=== PATIENT | female | born 1960 | race African-American/Black ===

== ENCOUNTER → 2016-11-18 | Outpatient (CLI) | payer OTHER ==
[~2016-11-18] MED LIST: ANTIHYPERTENSIVE; BENAZEPRIL HCL40 MG PO; C-10001000 M1 PO; DARVOCET-N 1001 EACH PO; DIAZEPAM 10 MG10 M2 PO; DIAZEPAM10 M1 OR; HYCET 7.5 MG-3473 ML PO; LOTENSIN40 MG PO; LOTREL 10-20 M1 EACH PO; LOTREL 5-20 MG1 EACH PO; NORCO 5-325 TA1 EACH PO; NORVASC10 MG PO; OMEPRAZOLE20 M1 PO; PAXIL10 MG PO; PENICILLIN VK500 M1 PO; PENTASA 250 MG250 MG PO; PREDNISONE 20 M20 MG PO; PRILOSEC 20 MG20 MG PO; REMICADE 1100 MG/VIA IV; VITAMIN A10000 UNI3 PO; VITAMIN E100 UNI2; VITAMINC500 PO; [UNRECOGNIZED DRUG - OTHER] OR
[2016-11-18 11:54] VITALS: BP 123/80
== END ==
LOC: OPONC 02:09
DX: K50.90 Crohn's disease, unspecified, without complications (principal); M19.90 Unspecified osteoarthritis, unspecified site

== ENCOUNTER → 2016-12-31 | Outpatient (CLI) | payer OTHER ==
[2016-12-31 10:50] VITALS: BP 133/94
== END ==
LOC: OPONC 12-30 10:46
DX: K50.90 Crohn's disease, unspecified, without complications (principal); M19.90 Unspecified osteoarthritis, unspecified site

== ENCOUNTER → 2017-02-09 | Outpatient (CLI) | payer OTHER ==
[2017-02-09 14:24] VITALS: BP 144/88
== END ==
LOC: OPONC 07:22
DX: K50.90 Crohn's disease, unspecified, without complications (principal)

== ENCOUNTER → 2017-03-24 | Outpatient (CLI) | payer OTHER ==
[2017-03-24 11:51] VITALS: BP 134/88
== END ==
LOC: OPONC 09-23 06:27
DX: K50.90 Crohn's disease, unspecified, without complications (principal)

== ENCOUNTER → 2017-05-11 | Outpatient (CLI) | payer OTHER ==
[2017-05-11 11:52] VITALS: BP 179/96
== END ==
LOC: OPONC 05-05 00:47
DX: K50.90 Crohn's disease, unspecified, without complications (principal); K63.9 Disease of intestine, unspecified

== ENCOUNTER → 2017-06-22 | Outpatient (CLI) | payer OTHER ==
[~2017-06-22] MED LIST changes: +INFLECTRA100 MG IV
[2017-06-22 13:34] VITALS: BP 128/96
== END ==
LOC: OPONC 00:27
DX: K50.90 Crohn's disease, unspecified, without complications (principal); K63.9 Disease of intestine, unspecified

== ENCOUNTER → 2017-10-27 | Outpatient (CLI) | payer OTHER ==
[2017-10-27 11:01] VITALS: BP 140/86; BP 147/99
== END ==
LOC: OPONC 00:16
DX: K50.90 Crohn's disease, unspecified, without complications (principal); K50.018 Crohn's disease of small intestine with other complication; K63.9 Disease of intestine, unspecified
CPT/HCPCS: 95000; 95001

== ENCOUNTER → 2017-12-14 | Outpatient (CLI) | payer OTHER ==
[2017-12-14 10:30] VITALS: BP 124/96
== END ==
LOC: OPONC 12-08 13:34
DX: K50.90 Crohn's disease, unspecified, without complications (principal); K63.9 Disease of intestine, unspecified
CPT/HCPCS: 95000; 95001

== ENCOUNTER → 2017-12-14 | Outpatient (CLI) | payer OTHER | LOC: RAD 01:01 | DX: Z12.31 Encounter for screening mammogram for malignant neoplasm of breast (principal) ==

== ENCOUNTER → 2018-05-18 | Outpatient (CLI) | payer OTHER ==
[2018-05-18 12:30] VITALS: BP 143/81
== END ==
LOC: OPONC 00:55
DX: K50.00 Crohn's disease of small intestine without complications (principal)
CPT/HCPCS: 95000; 95001

== ENCOUNTER → 2018-06-29 | Outpatient (CLI) | payer OTHER ==
[2018-06-29 11:15] VITALS: BP 120/80
== END ==
LOC: OPONC 06:01
DX: K50.00 Crohn's disease of small intestine without complications (principal)
CPT/HCPCS: 95000; 95001

== ENCOUNTER → 2018-08-16 | Outpatient (CLI) | payer OTHER ==
[2018-08-16 12:51] VITALS: BP 139/84
--- NOTE | 2018-08-16 14:47 | NUR ---
IN FOR INFLECTRA INFUSION FOR CROHN'S ASSOCIATED ARTHRITIS. STATED HAVING MILD PAIN TO ARMS. TITRATED INFLECTRA PER PROTOCOL WITH MAX RATE OF 250ML/HR AND TOLERATED WELL WITHOUT INCIDENT. SCHEDULED NEXT APPT. DISMISSED IN GOOD CONDITION.
== END ==
LOC: OPONC 08-12 09:33
DX: K50.00 Crohn's disease of small intestine without complications (principal); K63.9 Disease of intestine, unspecified; M07.60 Enteropathic arthropathies, unspecified site
CPT/HCPCS: 95000; 95001

== ENCOUNTER → 2018-09-28 | Outpatient (CLI) | payer OTHER ==
[2018-09-28 11:35] VITALS: BP 146/85
--- NOTE | 2018-09-28 14:20 | NUR ---
HERE FOR Q6W INFLECTRA INFUSION FOR CHRON'S ASSOCIATED ARTHRITIS. PT REPORTS DOING VERY WELL, NO RECENT FLARES, NO DIARRHEA, NO PAIN AT THIS TIME. DENIES RECENT ILLNESS, FEVERS, NEED FOR ANTIBIOTICS. PREMEDS GIVEN. INFLECTRA INFUSED OVER 2 HRS FOLLOWING TITRATION PROTOCOL. PT TOLERATED WITHOUT INCIDENT. NO S/S REACTION. DISMISSED IN STABLE CONDITION. SCHEDULED TO RETURN IN 6 WEEKS.
== END ==
LOC: OPONC 09-27 00:35
DX: K50.90 Crohn's disease, unspecified, without complications (principal); K63.9 Disease of intestine, unspecified
CPT/HCPCS: 95000; 95001

== ENCOUNTER → 2018-11-09 | Outpatient (CLI) | payer OTHER ==
[2018-11-09 12:15] VITALS: BP 142/79
--- NOTE | 2018-11-09 14:40 | NUR ---
HERE FOR Q6W INFLECTRA INFUSION. REPORTS DOING WELL. NO C/O DIARRHEA, NO JOINT PAINS. DENIES RECENT ILLNESS OR INFECTION. TOOK ORAL PREMEDS, INFLECTRA INFUSED PER TITRATION PROTOCOL. PT TOLERATED WITHOUT INCIDENT, NO S/S REACTION. DISMISSED IN STABLE CONDITION. SCHEDULED TO RETURN IN 6 WEEKS.
== END ==
LOC: OPONC 08:28
DX: K50.00 Crohn's disease of small intestine without complications (principal); K63.9 Disease of intestine, unspecified
CPT/HCPCS: 95000; 95001

== ENCOUNTER → 2018-12-20 | Outpatient (CLI) | payer OTHER ==
[2018-12-20 11:08] VITALS: BP 130/71
--- NOTE | 2018-12-20 13:22 | NUR ---
HERE FOR HER Q6 WEEK INFLECTRA INFUSION. REPORTS DOING WELL OTHER THAN RECENT ONSET OF DIARRHEA. DENIES BLEEDING. STATES THIS INFUSION SHOULD HELP. DENIES RECENT ILLNESS/INFECTION/FEVERS. TOOK ORAL PREMEDS. INFECTRA TITRATED PER PROTOCOL COMPLETING IN 2 HOURS. PT TOLERATED WITHOUT INCIDENT. DISMISSED IN STABLE CONDITION. SCHEDULED TO RETURN IN 6 WEEKS.
== END ==
LOC: OPONC 10:49
DX: K50.90 Crohn's disease, unspecified, without complications (principal); K63.9 Disease of intestine, unspecified
CPT/HCPCS: 95000; 95001

== ENCOUNTER → 2019-03-23 | Outpatient (CLI) | payer OTHER ==
[~2019-03-23] MED LIST changes: +XANAX 0.5 MG0.5 MG PO
[2019-03-23 11:07] VITALS: BP 132/82
--- NOTE | 2019-03-23 14:18 | NUR ---
IN FOR Q6WEEK INFLECTRA INFUSION. STATED FEELING WELL EXCEPT THE BOTTOM OF HER FEET ARE SORE AND CRACKING. PATIENT STATED SAID THIS IS FROM HER CROHN'S DISEASE. TITRATED INFLECTRA PER PROTOCOL WITH MAX RATE OF 250ML/HR AND TOLERATED WELL WITHOUT INCIDENT. PATIENT WILL CALL TO SCHEDULE NEXT INFUSION. DISMISSED IN GOOD CONDITION.
== END ==
LOC: OPONC 10:25
DX: K50.90 Crohn's disease, unspecified, without complications (principal); K63.9 Disease of intestine, unspecified
CPT/HCPCS: 95000; 95001

== ENCOUNTER → 2019-05-04 | Outpatient (CLI) | payer OTHER ==
[2019-05-04 12:12] VITALS: BP 131/92
--- NOTE | 2019-05-04 14:19 | NUR ---
HERE FOR HER Q6W INFLECTRA INFUSION. REPORTS DOING WELL, CHRON'S AND ARTHRITIS WELL CONTROLLED. IS HOWEVER HAVING SOME DERMATITIS ISSUES ON BOTTOMS OF BOTH FEET--VERY ITCHY, SPECKLED RASH. STATES DR. HERNANDEZ FEELS THIS IS EXCEMA. PT PLANS TO MAKE APPT WITH A [employer]. NO RECENT ILLNESS, FEVERS, NEED FOR ANTIBIOTICS. PREMEDS GIVEN AND INFLECTRA INFUSED OVER 2 H FOLLOWING TITRATION PROTOCOL. TOLERATED WITHOUT INCIDENT, NO S/S REACTION. DISMISSED IN STABLE CONDITION. PT WILL CALL CLOSER TO TIME TO SCHEDULE NEXT APPT SHE WILL NO LONGER HAVE A CAR AT THAT TIME AND WILL BE DEPENDENT ON A RIDE FROM SOMEONE.
== END ==
LOC: OPONC 08:56
DX: K50.90 Crohn's disease, unspecified, without complications (principal); K63.9 Disease of intestine, unspecified; M19.90 Unspecified osteoarthritis, unspecified site
CPT/HCPCS: 95000; 95001

== ENCOUNTER 2019-06-02 19:51 | Emergency (ER) | payer OTHER ==
[~2019-06-02] VITALS: Ht 157.5 cm; Wt 72.6 kg
== END 2019-06-02 20:37 | disposition home or self-care (01) ==
LOC: ER 19:51
DX: B35.3 Tinea pedis (principal); M06.9 Rheumatoid arthritis, unspecified; K50.90 Crohn's disease, unspecified, without complications; F17.210 Nicotine dependence, cigarettes, uncomplicated; Z88.5 Allergy status to narcotic agent

== ENCOUNTER → 2019-06-15 | Outpatient (CLI) | payer OTHER ==
[2019-06-15 11:45] VITALS: BP 136/85
--- NOTE | 2019-06-15 14:20 | NUR ---
PT HERE FOR Q6W INFLECTRA INFUSION. REPORTS STABLE CHRON'S AND ARTHRITIS. JUST HAVING ISSUES WITH HER FEET--SOLES OF FEET WITH ONGOING PAINFUL RASH. STATES WENT TO THE ED A WEEK OR SO AGO AND WAS PRESCRIBED BOTH AN ORAL MED AND A CREAM. WENT TO SEE DR. HERNANDEZ TODAY TO RENEW THE SCRIPTS RASH ONLY A LITTLE BETTER. GOT OK FROM DR. HERNANDEZ TO RECEIVE INFLECTRA INFUSION TODAY. NO OTHER S/S RECENT INFECTIONS NOTED. PREMEDS GIVEN AND INFLECTRA INFUSED OVER 2H FOLLOWING TITRATION PROTOCOL. TOLERATED WITHOUT INCIDENT, NO S/S REACTION. WILL CALL LATER TO SCHEDULE NEXT APPT DOES NOT YET KNOW HER WORK SCHEDULE. DISMISSED POST INFUSION IN STABLE CONDITION.
== END ==
LOC: OPONC 08:26
DX: K50.90 Crohn's disease, unspecified, without complications (principal); M19.90 Unspecified osteoarthritis, unspecified site
CPT/HCPCS: 95000; 95001

== ENCOUNTER → 2019-08-04 | Outpatient (CLI) | payer OTHER ==
[2019-08-04 15:37] VITALS: BP 131/88
--- NOTE | 2019-08-04 15:44 | NUR ---
IN FOR Q6WEEK INFLECTRA INFUSION. STATED FEELING WELL EXCEPT HER FEET HURT. STATED HAS PEELING SKIN ON HER FEET AND DR. HERNANDEZ IS AWARE OF THIS. PATIENT PLANS TO SEE DR. HERNANDEZ TODAY. TITRATED INFLECTRA PER PROTOCOL WITH MAX RATE OF 250ML/HR AND TOLERATED WELL WITHOUT INCIDENT. REMOVED IV AND DISMISSED IN GOOD CONDITION. PATIENT WILL CALL FOR NEXT APPT.
== END ==
LOC: OPONC 09:04
DX: K50.90 Crohn's disease, unspecified, without complications (principal); K63.9 Disease of intestine, unspecified
CPT/HCPCS: 95000; 95001

== ENCOUNTER → 2019-09-14 | Outpatient (CLI) | payer OTHER ==
[~2019-09-14] MED LIST changes: +OTEZLA30 MG PO
[2019-09-14 10:40] VITALS: BP 137/83
--- NOTE | 2019-09-14 13:33 | NUR ---
IN FOR Q6WEEK INFLECTRA INFUSION FOR CROHN'S ASSOCIATED ARTHRITIS. PATIENT STATED FEELING OK EXCEPT HAVING INCREASED DIARRHEA SINCE STARTING OTESLA FOR PSORIASIS. TITRATED INFLECTRA PER PROTOCOL WITH A MAX RATE OF 250ML/HR AND TOLERATED WELL. REMOVED IV AND DISMISSED IN GOOD CONDITION. WILL CALL TO SCHEDULE NEXT APPT.
== END ==
LOC: OPONC 09:55
DX: K50.90 Crohn's disease, unspecified, without complications (principal); K63.9 Disease of intestine, unspecified; M13.80 Other specified arthritis, unspecified site
CPT/HCPCS: 95000; 95001

== ENCOUNTER → 2019-11-03 | Outpatient (CLI) | payer OTHER ==
[2019-11-03 14:01] VITALS: BP 134/84
--- NOTE | 2019-11-03 14:35 | NUR ---
IN FOR Q6WEEK INFLECTRA INFUSION. STATED FEELING WELL. DENIED FEVER/CHILLS OR ANY SIGNS OF INFECTION. AFEBRILE. TITRATED INFLECTRA PER PROTOCOL WITH MAX RATE OF 250ML/HR AND TOLERATED WELL WITHOUT INCIDENT. PATIENT WILL CALL TO SCHEDULE NEXT APPT. DISMISSED IN GOOD CONDITION.
== END ==
LOC: OPONC 10-27 08:38
DX: K50.90 Crohn's disease, unspecified, without complications (principal); K63.9 Disease of intestine, unspecified
CPT/HCPCS: 95000; 95001

== ENCOUNTER → 2019-12-15 | Outpatient (CLI) | payer OTHER ==
[2019-12-15 11:00] VITALS: BP 143/85
--- NOTE | 2019-12-15 17:54 | NUR ---
IN FOR Q6WEEK INFLECTRA INFUSION. STATED FEELING WELL TODAY WITH SIGNS OF INFECTION IN THE LAST 2 WEEKS. TITRATED INFLECTRA PER PROTOCOL WITH MAX RATE OF 250ML/HR AND TOLERATED WELL. REMOVED IV AND DISMISSED IN GOOD CONDITION. WILL CALL TO SCHEDULE NEXT APPT. WHEN SHE SEES HER WORK SCHEDULE.
== END ==
LOC: OPONC 09:48
DX: K50.90 Crohn's disease, unspecified, without complications (principal); K63.9 Disease of intestine, unspecified
CPT/HCPCS: 95000; 95001

== ENCOUNTER → 2020-02-08 | Outpatient (CLI) | payer OTHER ==
[2020-02-08 12:28] VITALS: BP 150/85
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
== END ==
LOC: OPONC 08:45
PROVIDERS: ATTEND Internal Medicine Rheumatology
DX: K50.90 Crohn's disease, unspecified, without complications (principal); K63.9 Disease of intestine, unspecified
CPT/HCPCS: 95000; 95001

== ENCOUNTER → 2020-03-21 | Outpatient (CLI) | payer OTHER ==
--- NOTE | 2020-03-21 16:19 | NUR ---
IN FOR Q6WEEK INFLECTRA INFUSION. STATED FEELING WELL. PREMEDICATIONS GIVEN. TITRATED INFLECTRA PER PROTOCOL WITH MAX RATE OF 250ML/HR AND TOLERATED WELL. REMOVED IV AND DISMISSED IN GOOD CONDITION. WILL CALL FOR NEXT APPT.
== END ==
LOC: OPONC 08:42
PROVIDERS: ATTEND Internal Medicine Rheumatology
DX: K50.90 Crohn's disease, unspecified, without complications (principal); K63.9 Disease of intestine, unspecified
CPT/HCPCS: 95000; 95001

== ENCOUNTER → 2020-05-07 | Outpatient (CLI) | payer OTHER ==
[2020-05-07 15:01] VITALS: BP 129/79
--- NOTE | 2020-05-07 17:04 | NUR ---
IN FOR Q6WEEK INFLECTRA INFUSION FOR CROHN'S ASSOCIATED ARTHRITIS. STATED FEELING WELL AND HAS NOT HAD ANY INFECTIONS WITHIN THE LAST 2 WEEKS. TITRATED INFLECTRA PER PROTOCOL WITH MAX RATE OF 250 ML/HR AND TOLERATED WELL. REMOVED IV AND DISMISSED IN GOOD CONDITION.
== END ==
LOC: OPONC 09:56
DX: K50.90 Crohn's disease, unspecified, without complications (principal); K63.9 Disease of intestine, unspecified
CPT/HCPCS: 95000; 95001

== ENCOUNTER → 2020-06-14 | Outpatient (CLI) | payer OTHER ==
[2020-06-14 10:45] VITALS: BP 129/81
[2020-06-14 10:49] LABS: HEMATOCRIT 39.8 % (37.0-47.0); HEMOGLOBIN 12.4 gm/dL (12.0-15.0); MCH 28.4 pg (26.0-34.0); MCHC 31.2 g/dL (28.0-37.0); MCV 90.9 fL (80.0-100.0); RBC 4.38 mil/uL (4.20-5.00); RDW 13.6 % (10.5-14.5); WBC 8.9 thou/uL (4.0-11.0)
[2020-06-14 11:05] LABS: ALBUMIN 3.4 g/dL (3.4-5.0); CALCIUM 8.5 mg/dL (8.5-10.1); CREATININE 1.9 mg/dL (0.6-1.0); POTASSIUM 4.5 mmol/L (3.5-5.1); TOTAL BILIRUBIN 0.3 mg/dL (0.2-1.0); TOTAL PROTEIN 7.5 g/dL (6.4-8.2)
--- NOTE | 2020-06-14 12:37 | NUR ---
IN FOR Q6 WEEK INFLECTRA INFUSION FOR CROHN'S ASSOCIATED ARTHRITIS. STATED FEELING WELL WITH NO INFECTIONS IN THE LAST 2 WEEKS. LUNGS CLEAR. IV PLACED IN RT FOREARM AND TITRATED INFLECTRA PER PROTOCOL WITH A MAX RATE OF 250ML/HR. TOLERATED WELL. REMOVED IV AND DISMISSED IN GOOD CONDITION. WILL CALL FOR NEXT APPT.
== END ==
LOC: OPONC 09:49
PROVIDERS: Internal Medicine Rheumatology
DX: K50.90 Crohn's disease, unspecified, without complications (principal); K63.9 Disease of intestine, unspecified
CPT/HCPCS: 95000; 95001

== ENCOUNTER → 2020-07-31 | Outpatient (CLI) | payer OTHER ==
[2020-07-31 10:30] VITALS: BP 137/77
--- NOTE | 2020-07-31 13:58 | NUR ---
IN FOR INFLECTRA INFUSION FOR CROHN'S ASSOCIATED ARTHRITIS. STATED FEELING ACHY, HOWEVER HAS HAD NO FEVER/CHILLS OR SHORTNESS OF BREATH. IV PLACED IN LAC AND TITRATED INFUSION PER PROTOCOL WITH MAX RATE OF 250 ML/HR. TOLERATED WELL. REMOVED IV AND DISMISSED IN GOOD CONDITION. WILL CALL FOR NEXT APPT.
== END ==
LOC: OPONC 07-23 08:09
DX: K50.90 Crohn's disease, unspecified, without complications (principal); K63.9 Disease of intestine, unspecified
CPT/HCPCS: 95000; 95001

== ENCOUNTER → 2020-09-23 | Outpatient (CLI) | payer OTHER ==
[~2020-09-23] MED LIST changes: +PREVAGEN PO; +VITAMIN E1000 UNIT PO
[2020-09-23 12:30] VITALS: BP 140/89
[2020-09-23 13:05] LABS: HEMATOCRIT 37.6 % (37.0-47.0); HEMOGLOBIN 12.7 gm/dL (12.0-15.0); MCH 30.7 pg (26.0-34.0); MCHC 33.8 g/dL (28.0-37.0); MCV 90.8 fL (80.0-100.0); RBC 4.14 mil/uL (4.20-5.00); RDW 13.7 % (10.5-14.5); WBC 7.6 thou/uL (4.0-11.0)
[2020-09-23 13:28] LABS: ALBUMIN 3.8 g/dL (3.4-5.0); CALCIUM 9.1 mg/dL (8.5-10.1); CREATININE 1.9 mg/dL (0.6-1.0); POTASSIUM 4.4 mmol/L (3.5-5.1); TOTAL BILIRUBIN 0.4 mg/dL (0.2-1.0); TOTAL PROTEIN 7.8 g/dL (6.4-8.2)
--- NOTE | 2020-09-23 14:24 | NUR ---
HERE FOR Q6 WEEK INFLECTRA INFUSION. RUNNING A COUPLE WEEKS LATE. REPORTS DOING WELL, FEELING WELL. NO C/O ARTHRITIC ISSUES OR ANY BOWEL ISSUES. HER STRESS REVOLVES AROUND MOVING IN WITH AND CARING FOR HER AGING FATHER. LABS DRAWN TODAY WITH HER IV START. TOOK ORAL PREMEDS. INFLECTRA INFUSING PER TITRATION PROTOCOL. PT TOLERATING WITHOUT INCIDENT. PREFERS TO CALL BACK TO MAKE NEXT APPT WHEN SHE IS AWARE OF HER SCHEDULE.
--- NOTE | 2020-09-23 15:15 | NUR ---
COMPLETED INFUSION WITHOUT INCIDENT. DISMISSED IN STABLE CONDITION.
== END ==
LOC: OPONC 09-16 14:41
PROVIDERS: ATTEND Internal Medicine Rheumatology
DX: K50.90 Crohn's disease, unspecified, without complications (principal); K63.9 Disease of intestine, unspecified
CPT/HCPCS: 95000; 95001

== ENCOUNTER → 2020-11-15 | Outpatient (CLI) | payer OTHER ==
[2020-11-15 10:05] VITALS: BP 168/76
--- NOTE | 2020-11-15 17:09 | NUR ---
HERE FOR Q6W INFLECTRA INFUSION. RUNNING A COUPLE WEEKS LATE BUT STATES SHE IS DOING WELL, FEELING WELL. SOME DIARRHEA BUT DENIES ANY BLOOD IN STOOL. TOLERATED INFUSION TODAY WITHOUT INCIDENT, NO S/S REACTION, RUN PER TITRATION PROTOCOL. DISMISSED IN STABLE CONDITION. STATES WILL CALL WHEN READY TO RETURN.
== END ==
LOC: OPONC 08:02
DX: K50.90 Crohn's disease, unspecified, without complications (principal); K63.9 Disease of intestine, unspecified
CPT/HCPCS: 95000; 95001

== ENCOUNTER → 2021-01-06 | Outpatient (CLI) | payer OTHER ==
[2021-01-06 13:28] VITALS: BP 139/70
[2021-01-06 14:19] LABS: HEMATOCRIT 37.5 % (37.0-47.0); HEMOGLOBIN 12.4 gm/dL (12.0-15.0); MCH 30.1 pg (26.0-34.0); MCHC 33.1 g/dL (28.0-37.0); MCV 90.9 fL (80.0-100.0); RBC 4.13 mil/uL (4.20-5.00); RDW 13.1 % (10.5-14.5); WBC 8.5 thou/uL (4.0-11.0)
[2021-01-06 14:38] LABS: ALBUMIN 3.3 g/dL (3.4-5.0); CALCIUM 8.5 mg/dL (8.5-10.1); CREATININE 1.8 mg/dL (0.6-1.0); POTASSIUM 4.4 mmol/L (3.5-5.1); TOTAL BILIRUBIN 0.3 mg/dL (0.2-1.0); TOTAL PROTEIN 7.4 g/dL (6.4-8.2)
--- NOTE | 2021-01-06 16:11 | NUR ---
ARRIVED AMBULATORY FOR INFLECTRA INFUSION. DENIES FEVER OR ILLNESS. STATES SHE HAS BEEN FEELING WELL. PREMEDS GIVEN. IV STARTED AND LABS DRAWN AND FAXED TO DR. HERNANDEZ. TOLERATED INFUSION WITHOUT ADVERSE REACTION. INFUSION TITRATED PER PROTOCOL. DISCHARGED AMBULATORY IN STABLE CONDITION. TO CALL WHEN SHE WANTS TO RETURN FOR NEXT INFUSION.
== END ==
LOC: OPONC 10:10
PROVIDERS: Internal Medicine Rheumatology
DX: K50.90 Crohn's disease, unspecified, without complications (principal); K63.9 Disease of intestine, unspecified
CPT/HCPCS: 95000; 95001

== ENCOUNTER → 2021-02-24 | Outpatient (CLI) | payer OTHER ==
[2021-02-24 16:59] VITALS: BP 147/78
--- NOTE | 2021-02-24 17:09 | NUR ---
ARRIVED AMBULATORY FOR INFLECTRA. STATES SHE HAS BEEN FEELING WELL. NO COUGH FEVER OR ILLNESS. HAS NOT BEEN AROUND ANYONE ELSE WHO IS SICK. IV STARTED AND PREMEDS GIVEN ORDERED. INFLECTRA BEGAN AND TITRATED PER PROTOCOL. TOLERATED INFUSION WITHOUT ADVERSE REACTION. IV D'CD AND PATIENT DISCHARED IN STABLE CONDTION. WILL CALL FOR NEXT APPOINTMENT.
== END ==
LOC: OPONC 08:30
DX: K50.90 Crohn's disease, unspecified, without complications (principal); K63.9 Disease of intestine, unspecified
CPT/HCPCS: 95000; 95001

== ENCOUNTER → 2021-04-14 | Outpatient (CLI) | payer OTHER ==
[2021-04-14 12:45] VITALS: BP 124/89
[2021-04-14 13:21] LABS: HEMOGLOBIN 12.1 gm/dL (12.0-15.0); MCH 30.3 pg (26.0-34.0); MCHC 33.7 g/dL (28.0-37.0); MCV 89.9 fL (80.0-100.0); RBC 4.01 mil/uL (4.20-5.00); RDW 13.7 % (10.5-14.5); WBC 8.9 thou/uL (4.0-11.0)
[2021-04-14 13:45] LABS: ALBUMIN 3.2 g/dL (3.4-5.0); ANION GAP 9 mmol/L (7-16); BUN 19 mg/dL (7-18); CALCIUM 8.2 mg/dL (8.5-10.1); CHLORIDE 108 mmol/L (98-107); CO2 25 mmol/L (21-32); CREATININE 1.8 mg/dL (0.6-1.0); GLUCOSE 109 mg/dL (74-106); POTASSIUM 4.5 mmol/L (3.5-5.1); SGOT 16 U/L (15-37); SGPT 21 U/L (30-65); SODIUM 142 mmol/L (136-145); TOTAL BILIRUBIN 0.4 mg/dL (0.2-1.0); TOTAL PROTEIN 6.7 g/dL (6.4-8.2)
--- NOTE | 2021-04-14 15:44 | NUR ---
HERE FOR Q6W INFLECTRA INFUSION. REPORTS DOING WELL OTHER THAN NOTICING THAT SHE IS HAVING LOTS OF DIARRHEA AND KNOWS IT IS TIME FOR HER INFUSION. DENIES BLOOD IN STOOL, PAIN, FEVER OR RECENT ILLNESS. TOOK ORAL PREMEDS. INFUSION TITRATED PER PROTOCOL AND INFUSED OVER 2 HOURS. PT TOLERATED WITHOUT INCIDENT. DISMISSED IN STABLE CONDITION. SCHEDULED TO RETURN ON May.
== END ==
LOC: OPONC 09:19
PROVIDERS: Internal Medicine Rheumatology
DX: K50.90 Crohn's disease, unspecified, without complications (principal); K63.9 Disease of intestine, unspecified
CPT/HCPCS: 95000; 95001

== ENCOUNTER → 2021-05-26 | Outpatient (CLI) | payer OTHER ==
[2021-05-26 13:02] VITALS: BP 144/77
--- NOTE | 2021-05-26 16:09 | NUR ---
ARRIVED AMBULATORY FOR INFLECTRA IV. TOOK PREMEDS PO OF BENADRYL 25MG AND ACETAMINOPHEN 650 MG. IV STARTED AND INFLECTRA INFUSION INITIATED AND TITRATED PER PROTOCOL. PATIENT STATES SHE HAS BEEN FEELING WELL. DENIES PAIN. TOLERATED INFUSION WITHOUT ADVERSE REACTION. DC AMBULATORY IN STABLE CONDITION. WILL CALL IN 6 WEEKS FOR HER NEXT APPOINTMENT.
== END ==
LOC: OPONC 09:44
DX: K50.90 Crohn's disease, unspecified, without complications (principal); K63.9 Disease of intestine, unspecified
CPT/HCPCS: 95000; 95001

== ENCOUNTER → 2021-06-09 | Outpatient (CLI) | payer OTHER | LOC: RAD 13:33 | PROVIDERS: ATTEND Internal Medicine Rheumatology | DX: Z12.31 Encounter for screening mammogram for malignant neoplasm of breast (principal); N63.20 Unspecified lump in the left breast, unspecified quadrant; N63.10 Unspecified lump in the right breast, unspecified quadrant; N64.89 Other specified disorders of breast ==

== ENCOUNTER → 2021-06-16 | Outpatient (CLI) | payer OTHER | LOC: ULTRA 13:52 | PROVIDERS: ATTEND Internal Medicine Rheumatology | DX: N63.10 Unspecified lump in the right breast, unspecified quadrant (principal); N63.20 Unspecified lump in the left breast, unspecified quadrant ==

== ENCOUNTER → 2021-07-21 | Outpatient (CLI) | payer OTHER ==
[2021-07-21 13:00] VITALS: BP 146/82
[2021-07-21 13:39] LABS: HEMATOCRIT 41.2 % (37.0-47.0); HEMOGLOBIN 13.6 gm/dL (12.0-15.0); MCH 29.7 pg (26.0-34.0); MCV 90.1 fL (80.0-100.0); RBC 4.57 mil/uL (4.20-5.00); RDW 13.2 % (10.5-14.5); WBC 10.3 thou/uL (4.0-11.0)
[2021-07-21 13:56] LABS: ALBUMIN 3.4 g/dL (3.4-5.0); CREATININE 1.5 mg/dL (0.6-1.0); POTASSIUM 3.8 mmol/L (3.5-5.1); TOTAL BILIRUBIN 0.3 mg/dL (0.2-1.0); TOTAL PROTEIN 7.3 g/dL (6.4-8.2)
--- NOTE | 2021-07-21 15:56 | NUR ---
PT HERE FOR Q6 WEEK INFLECTRA INFUSION. REPORTS FEELING WELL DESPITE MINOR STIFFNESS. UNABLE TO OBTAIN IV ACCESS. VAT RN CALLED AND SHE STARTED IV IN RIGHT FOREARM. LABS DRAWN PER ORDER AND FAXED TO DR HERNANDEZ. TYLENOL AND BENADRYL PRE-MEDS GIVEN. INFLECTRA INFUSION TITIRATED PER PATIENT NORM. TOLERATED INFUSION WITH NO COMPLICATIONS. IV D/C'ED. PT WILL CALL TO SCHEDULE NEXT APPT. LEFT UNIT IN STABLE CONDITION.
== END ==
LOC: OPONC 11:39
PROVIDERS: ATTEND Internal Medicine Rheumatology
DX: K50.90 Crohn's disease, unspecified, without complications (principal); K63.9 Disease of intestine, unspecified
CPT/HCPCS: 95000; 95001